=== PATIENT | female | born 1960 | race African-American/Black ===

== ENCOUNTER 2020-05-04 02:30 | Emergency (ER) | payer OTHER ==
--- NOTE | 2020-05-04 03:58 | ER Document Report ---
HPI - HPI Time Seen by Provider: 05/04/20 03:57 Pain Level: Denies Context: Patient is a 59-year-old female who presents the emergency department with a chief complaint of loss of taste and smell that started 9 days ago. Patient states that she does not know if she has had any contact with anybody who has tested positive for COVID-19. Patient states, "I think I have COVID." She has a history of hypertension. - CONSTITUTIONAL Constitutional: DENIES: Fever, Chills - EENT EENT: DENIES: Sore Throat, Ear Pain, Eye problems Notes: See HPI. - NEURO Neurology: DENIES: Headache, Weakness, Vision blurred, Dizzinesss / Vertigo - CARDIOVASCULAR Cardiovascular: DENIES: Chest pain - RESPIRATORY Respiratory: DENIES: Trouble Breathing, Coughing - GASTROINTESTINAL Gastrointestinal: DENIES: Abdominal Pain, Black / Bloody Stools - URINARY Urinary: DENIES: Dysuria, Urgency, Frequency - REPRODUCTIVE Reproductive: DENIES: : - MUSCULOSKELETAL Musculoskeletal: DENIES: Extremity pain Past Medical History - Social History Smoking Status: Current Every Day Smoker Chew tobacco use (# tins/day): No Frequency of alcohol use: None Drug Abuse: None Family History: Reviewed & Not Pertinent Patient has homicidal ideation: No Vertical Provider Document - CONSTITUTIONAL Agree With Documented VS: Yes Exam Limitations: No Limitations General Appearance: No Apparent Distress - HEENT HEENT: Atraumatic, Normocephalic, PERRLA - NECK Neck: Normal Inspection - RESPIRATORY Respiratory: Breath Sounds Normal, No Respiratory Distress - CARDIOVASCULAR Cardiovascular: Regular Rate, Regular Rhythm Pulses: Normal: Radial - MUSCULOSKELETAL/EXTREMETIES Musculoskeletal/Extremeties: FROM - NEURO Level of Consciousness: Awake, Alert, Appropriate Motor/Sensory: No Motor Deficit, No Sensory Deficit - DERM Integumentary: Warm, Dry, No Rash Course - Re-evaluation Re-evalutation: 05/04/20 03:58 The patient was evaluated during the global COVID-19 pandemic and that diagnosis was suspected/considered upon their initial presentation. Their evaluation, treatment and testing was consistent with current guidelines for patients who present with complaints or symptoms that may be related to COVID-19. - Vital Signs Vital signs: Temp Pulse Resp BP Pulse Ox 98.0 F 75 16 122/98 H 100 05/04/20 02:44 05/04/20 02:41 05/04/20 02:41 05/04/20 02:41 05/04/20 02:41 Discharge - Discharge Clinical Impression: Loss of taste, Loss of smell Condition: Stable Disposition: HOME, SELF-CARE Instructions: COVID-19 Guidance for Persons Under Investigation Additional Instructions: You were seen today in the emergency department for loss of taste and smell. You are tested for COVID-19. Health department will call you with your results. They usually give your results within 3 to 5 days. If your results are positive, stay in quarantine for at least 2 weeks.
[2020-05-04 04:15] VITALS: BP 110/72
== END 2020-05-04 04:14 | disposition home or self-care (01) ==
LOC: ER 02:30
DX: U07.1 COVID-19 (principal); R43.8 Other disturbances of smell and taste; F17.200 Nicotine dependence, unspecified, uncomplicated; I10 Essential (primary) hypertension
CPT/HCPCS: 99283; 87635; C9803

== ENCOUNTER 2020-05-10 03:50 | Inpatient (IN) | payer OTHER ==
[2020-05-10] MEDS ORDERED: ONDANSETRON HCL INJ/PF 4 MG/2 ML SDV IV ONE (04:18)
--- NOTE | 2020-05-10 04:22 | ER Document Report ---
ED General - General Chief Complaint: Weakness Stated Complaint: WEAKNESS Time Seen by Provider: 05/10/20 04:06 Primary Care Provider: MANASA VARGAS FNP-C [NO LOCAL MD] - Follow up as needed Notes: Patient is a 59-year-old female that comes emergency department for chief complaint of weakness and cough. She states that she has been sick for almost 2 weeks, she was seen here 6 days ago for similar symptoms, she tested positive for COVID-19, she states that she threw up earlier today, had really bad aching feeling in her legs, felt very weak and intermittently short of breath, so she decided to come back in for evaluation. She denies chest pain, headache, sore throat, abdominal pain, fever. Past medical history of hypertension, hyperlipidemia, both medicated. She denies smoking, COPD, asthma, cardiac h istory. - Related Data Allergies/Adverse Reactions: No Known Allergies Allergy (Unverified 05/04/20 04:03) Past Medical History - General Information source: Patient - Social History Smoking Status: Never Smoker Frequency of alcohol use: None Drug Abuse: None Lives with: Family Family History: Reviewed & Not Pertinent - Past Medical History Cardiac Medical History: Reports: Hx Hypercholesterolemia, Hx Hypertension - Immunizations Immunizations up to date: Yes Hx Diphtheria, Pertussis, Tetanus Vaccination: Yes Review of Systems - Review of Systems Constitutional: See HPI EENT: No symptoms reported Cardiovascular: No symptoms reported Respiratory: See HPI Gastrointestinal: See HPI Genitourinary: No symptoms reported Female Genitourinary: No symptoms reported Musculoskeletal: No symptoms reported Skin: No symptoms reported Hematologic/Lymphatic: No symptoms reported Neurological/Psychological: No symptoms reported Physical Exam - Vital signs Vitals: Temp Pulse Resp BP Pulse Ox 98.3 F 75 20 113/68 100 05/10/20 04:07 05/10/20 04:07 05/10/20 04:07 05/10/20 04:07 05/10/20 04:07 - Notes Notes: GENERAL: Patient is slightly lethargic and ill-appearing in appearance but she is a still awake, oriented, and appropriate HEAD: Normocephalic, atraumatic. EYES: Pupils equal, round, and reactive to light. Extraocular movements intact. ENT: Oral mucosa moist, tongue midline. Oropharynx unremarkable. Airway patent. LUNGS: Clear to auscultation bilaterally, no wheezes, rales, or rhonchi. No respiratory distress. Non-tender chest wall. HEART: Regular rate and rhythm. No murmur ABDOMEN: Soft, non-tender. Non-distended. EXTREMITIES: Moves all 4 extremities spontaneously. No edema, normal radial and dorsalis pedis pulses bilaterally. No cyanosis. BACK: no cervical, thoracic, lumbar midline tenderness. No saddle anesthesia, normal distal neurovascular exam. Moves all extremities in full range of motion. NEUROLOGICAL: Alert and oriented x3. Normal speech. Cranial nerves II through X II grossly intact. Strength 5/5 in all extremities. PSYCH: Flat affect SKIN: Warm, dry, normal turgor. No rashes or lesions noted. Course - Re-evaluation Re-evalutation: Patient is slightly ill-appearing and lethargic but she is still oriented, cooperative, and her physical exam is otherwise unremarkable. Lungs clear, soft abdomen, vital signs unremarkable. Chest x-ray unremarkable. CBC unremarkable. Chemistry shows marked hyponatremia at 106.6, slightly elevated LFTs, nonspecific otherwise. Troponin is not elevated. EKG nonspecific. I do not have any comparison labs, patient is not familiar with having hyponatremia in the past, I suspect her hydrochlorothiazide could be a component of this. I discussed with patient details, recommended admission for treatment of hyponatremia, patient states understanding and agreement. 05/10/20 08:[address] Ayoub, patient accepted by him, full admission. - Vital Signs Vital signs: Temp Pulse Resp BP Pulse Ox 98.3 F 75 20 113/68 100 05/10/20 04:07 05/10/20 04:07 05/10/20 04:07 05/10/20 04:07 05/10/20 04:07 - Laboratory Result Diagrams: 05/10/20 05:19 05/10/20 05:19 Laboratory results interpreted by me: 05/10/20 05/10/20 05/10/20 05:19 05:19 05:19 RBC 3.52 L Hgb 10.5 L Hct 28.9 L MCHC 36.3 H Sodium 106.6 L* Chloride 72 L Est GFR (MDRD) Non-Af 49 L AST 95 H ALT 40 H Urine Ketones TRACE H - EKG Interpretation by Me Additional EKG results interpreted by me: EKG shows sinus rhythm at a rate of 68, normal axis, borderline right bundle branch block. No T wave inversions or ST segment changes in consecutive leads. QTc 443. Discharge - Discharge Clinical Impression: Hyponatremia, Weakness, Body aches, COVID-19 Condition: Stable Disposition: ADMITTED INPATIENT Admitting Provider: [facility] (Hospitalist) Unit Admitted: IMCU Referrals: MANASA VARGAS FNP-C [NO LOCAL MD] - Follow up as needed
[2020-05-10 05:42] LABS: ABSOLUTE LYMPHOCYTES (AUTO) 2.6 10^3/uL (0.5-4.7); ABSOLUTE MONOCYTES (AUTO) 0.9 10^3/uL (0.1-1.4); BASOPHILS % (AUTO) 0.5 % (0-2); EOSINOPHILS % (AUTO) 0.2 % (0-6); HEMATOCRIT 28.9 % (36.0-47.0); HEMOGLOBIN 10.5 g/dL (12.0-15.5); MEAN CORPUSCULAR HEMOGLOBIN 29.8 pg (27.0-33.4); MEAN CORPUSCULAR HGB CONC 36.3 g/dL (32.0-36.0); MEAN CORPUSCULAR VOLUME 82 fl (80-97); PLATELET COUNT 335 10^3/uL (150-450); RED BLOOD COUNT 3.52 10^6/uL (3.72-5.28); RED CELL DISTRIBUTION WIDTH 12.4 % (11.5-14.0); SEGMENTED NEUTROPHILS % (AUTO) 63.3 % (42-78); TOTAL CELLS COUNTED % (AUTO) 100 %; WHITE BLOOD COUNT 9.5 10^3/uL (4.0-10.5)
[2020-05-10 05:50] LABS: APPEARANCE,URINE CLEAR; BILIRUBIN,URINE NEGATIVE (NEGATIVE); COLOR,URINE COLORLESS; GLUCOSE, URINE NEGATIVE (NEGATIVE); KETONES,URINE TRACE mg/dL (NEGATIVE); LEUKOCYTE ESTERASE,URINE NEGATIVE (NEGATIVE); NITRITE,URINE NEGATIVE (NEGATIVE); PROTEIN,URINE NEGATIVE (NEGATIVE); URINE SPECIFIC GRAVITY 1.002; UROBILINOGEN,URINE NEGATIVE mg/dL (<2.0)
[2020-05-10 06:08] LABS: ALKALINE PHOSPHATASE 75 U/L (38-126); ANION GAP 10 (5-19); ASPARTATE AMINO TRANSFERASE 95 U/L (14-36); BILIRUBIN,DIRECT 0.2 mg/dL (0.0-0.4); BILIRUBIN,TOTAL 1.1 mg/dL (0.2-1.3); BLOOD UREA NITROGEN 12 mg/dL (7-20); CALCIUM 9.3 mg/dL (8.4-10.2); CARBON DIOXIDE 25 mmol/L (22-30); CHLORIDE 72 mmol/L (98-107); GLUCOSE 99 mg/dL (75-110); POTASSIUM 4.2 mmol/L (3.6-5.0); TOTAL PROTEIN 6.5 g/dL (6.3-8.2)
--- NOTE | 2020-05-10 06:13 | RADIOLOGY REPORT (SQ) ---
EXAM: XR Chest, 1 View EXAM DATE/TIME: 05/10/2020 04:51 CLINICAL HISTORY: The patient is 59 years old and is Female; weakness, cough TECHNIQUE: Frontal view of the chest. COMPARISON: No relevant prior studies available. FINDINGS: LUNGS: Unremarkable. No consolidation. PLEURAL SPACE: Unremarkable. No pneumothorax. HEART: No significant enlargement of the cardiac silhouette. MEDIASTINUM: Unremarkable. BONES/JOINTS: No acute osseous findings. IMPRESSION: No acute findings visualized in the chest.
[2020-05-10] MEDS ORDERED: NORMAL SALINE 1000 ML 1,000 ML IV ONE (06:40)
[2020-05-10] MEDS ORDERED: PROMETHAZINE HCL 6.25 MG/5 ML SYRUP 60 ML PO PRN (08:25)
[2020-05-10] MEDS ORDERED: METOPROLOL TARTRATE PF/INJ 5 MG/5 ML SDV IV PRN (08:25)
[2020-05-10] MEDS ORDERED: ONDANSETRON HCL INJ/PF 4 MG/2 ML SDV IV PRN (08:25)
[2020-05-10] MEDS ORDERED: HYDRALAZINE HCL INJ/PF 20 MG/1 ML SDV IV PRN (08:25)
[2020-05-10] MEDS ORDERED: IPRATROPIUM/ALBUTEROL 0.5-2.5 MG/3 ML AMPUL NEB PRN (08:28)
[2020-05-10] MEDS ORDERED: NORMAL SALINE 1000 ML 1,000 ML IV PRN ×2 (08:32→14:59)
[2020-05-10] MEDS ORDERED: AZITHROMYCIN 250 MG TABLET PO ONE (09:00)
[2020-05-10] MEDS: ASCORBIC ACID 500 MG TABLET PO SCH ×2 (10:14→17:56)
[2020-05-10] MEDS: ASPIRIN 81 MG TABLET, ENT COATED PO SCH (10:14)
[2020-05-10] MEDS: CHOLECALCIFEROL (D3) 1,000 UNIT (25 MCG) TABLET PO SCH (10:15)
[2020-05-10] MEDS: ENOXAPARIN SODIUM INJ 60 MG/0.6 ML DISP.SYRIN SUBCUT SCH ×2 (10:15→21:13)
[2020-05-10] MEDS: DEXAMETHASONE SOD PHOS INJ 10 MG/1 ML VIAL IV SCH (10:16)
[2020-05-10] MEDS: ZINC SULFATE 220 MG CAPSULE PO SCH (10:54)
[2020-05-10 11:11] LABS: URINE CREATININE 20.8 mg/dL (15-278)
[2020-05-10 14:42] LABS: BLOOD UREA NITROGEN 11 mg/dL (7-20); CALCIUM 9.7 mg/dL (8.4-10.2); CARBON DIOXIDE 23 mmol/L (22-30); CHLORIDE 81 mmol/L (98-107); GLUCOSE 104 mg/dL (75-110); POTASSIUM 4.2 mmol/L (3.6-5.0)
[2020-05-10 14:45] LABS: ANION GAP 12 (5-19)
--- NOTE | 2020-05-10 15:37 | PDOC H&P ---
History of Present Illness Admission Date/PCP: 05/10/20 10:12 LORETTA HERNANDEZ MD History of Present Illness: MARCO ANTONIO ALEMAN is a 59 year old female with significant past medical history except for hypertension hyperlipidemia presented to ED on 05/04/2020 complaining of loss of taste for 9 days, could not tell if she was exposed COVID-19, patient was tested for COVID-19 and discharged home, today patient is presenting to ED complaining of persistent weakness and nonproductive cough, nausea vomiting, and generalized body aches and shortness of breath, mildly elevated aminotransfera ses, and was also noted to have positive cough with test from 05/04/2020. Except for one episode of vomiting patient denies having any excessive vomiting or diarrhea, she does not take any herbal medication, her only medication is hydrochlorothiazide which she has been taking for long time. Patient denies any fever, chills, chest pain, abdominal pain, constipation or any urinary symptoms. Hospitalist consulted for admission. Past Medical History Cardiac Medical History: Reports: Hyperlipidema, Hypertension Social History Lives with: Family Smoking Status: Never Smoker Family History Family History: Reviewed & Not Pertinent Parental Family History Reviewed: Yes Children Family History Reviewed: Yes Sibling(s) Family History Reviewed.: Yes Medication/Allergy Home Medications: Hydrochlorothiazide [Hydrodiuril 25 mg Tablet] 25 mg PO QAM 05/10/20 Lisinopril [Zestril] 30 mg PO QAM 05/10/20 Rosuvastatin Calcium 5 mg PO QPM 05/10/20 Allergies/Adverse Reactions: No Known Allergies Allergy (Unverified 05/04/20 04:03) Review of Systems Review of Systems: as per hpi Physical Exam Vital Signs: Temp Pulse Resp BP Pulse Ox 98.7 F 75 15 114/68 100 05/10/20 13:52 05/10/20 04:07 05/10/20 12:30 05/10/20 12:30 05/10/20 12:30 Intake & Output 05/09/20 05/10/20 05/11/20 06:59 06:59 06:59 Intake Total 1000 Output Total 400 Balance 600 Weight 73.482 kg General appearance: PRESENT: no acute distress, well-developed, well-nourished Head exam: PRESENT: atraumatic, normocephalic Respiratory exam: PRESENT: clear to auscultation nicholas. ABSENT: rales, rhonchi, wheezes Cardiovascular exam: PRESENT: RRR. ABSENT: diastolic murmur, rubs, systolic murmur GI/Abdominal exam: PRESENT: normal bowel sounds, soft. ABSENT: distended, guarding, mass, organolmegaly, rebound, tenderness Neurological exam: PRESENT: alert, awake, oriented to person, oriented to place, oriented to time, oriented to situation, CN II-XII grossly intact. ABSENT: motor sensory deficit Results Laboratory Results: 05/10/20 05:19 05/10/20 13:59 05/10/20 05/10/20 05/10/20 05:19 05:19 05:19 WBC 9.5 RBC 3.52 L Hgb 10.5 L Hct 28.9 L MCV 82 MCH 29.8 MCHC 36.3 H RDW 12.4 Plt Count 335 Seg Neutrophils % 63.3 Sodium 106.6 L* Potassium 4.2 Chloride 72 L Carbon Dioxide 25 Anion Gap 10 BUN 12 Creatinine 1.12 Est GFR ( Amer) > 60 Glucose 99 Serum Osmolality Calcium 9.3 Total Bilirubin 1.1 AST 95 H Alkaline Phosphatase 75 Total Protein 6.5 Albumin 4.0 Urine Color COLORLESS Urine Appearance CLEAR Urine pH 7.0 Ur Specific [place] 1.002 Urine Protein NEGATIVE Urine Glucose (UA) NEGATIVE Urine Ketones TRACE H Urine Blood NEGATIVE Urine Nitrite NEGATIVE Ur Leukocyte Esterase NEGATIVE Urine WBC (Auto) 1 Urine Osmolality 05/10/20 05/10/20 05/10/20 05:19 08:30 08:30 WBC RBC Hgb Hct MCV MCH MCHC RDW Plt Count Seg Neutrophils % Sodium 111.2 L* Potassium Chloride Carbon Dioxide Anion Gap BUN Creatinine Est GFR ( Amer) Glucose Serum Osmolality 228 L Calcium Total Bilirubin AST Alkaline Phosphatase Total Protein Albumin Urine Color Urine Appearance Urine pH Ur Specific [place] Urine Protein Urine Glucose (UA) Urine Ketones Urine Blood Urine Nitrite Ur Leukocyte Esterase Urine WBC (Auto) Urine Osmolality 96 L 05/10/20 13:59 WBC RBC Hgb Hct MCV MCH MCHC RDW Plt Count Seg Neutrophils % Sodium 115.6 L* Potassium 4.2 Chloride 81 L Carbon Dioxide 23 Anion Gap 12 BUN 11 Creatinine 0.97 Est GFR ( Amer) > 60 Glucose 104 Serum Osmolality Calcium 9.7 Total Bilirubin AST Alkaline Phosphatase Total Protein Albumin Urine Color Urine Appearance Urine pH Ur Specific [place] Urine Protein Urine Glucose (UA) Urine Ketones Urine Blood Urine Nitrite Ur Leukocyte Esterase Urine WBC (Auto) Urine Osmolality 05/10/20 05:19 Troponin I < 0.012 Impressions: Chest X-Ray 05/10/20 04:18 IMPRESSION: No acute findings visualized in the chest. Assessment and Plan - Diagnosis (1) Hyponatremia Is this a current diagnosis for this admission?: Yes Plan: Euvolemic hypoosmolar hyponatremia. Unclear etiology. Patient is on hydrochlorothiazide. Denies psychogenic polydipsia, denies taking any herbal medications. Initial labs showed a sodium of 106 in ED, she received 1 L of NS repeat sodium level was 111, not sure if this was lab error or patient actually corrected herself. Admit to IMCU, serum osmolarity, urine sodium, urine creatinine, NS IV fluids, every 4 BMP, monitor for seizure, fall, strict in and out. (2) Hypertension Qualifiers: Hypertension type: essential hypertension Qualified Code(s): I10 - Essential (primary) hypertension Is this a current diagnosis for this admission?: Yes Plan: Normotensive. Euvolemic. Home medications are lisinopril and hydrochlorothiazide. Resume lisinopril. Hold hydrochlorothiazide. PRN IV hydralazine and metoprolol. (3) COVID-19 Is this a current diagnosis for this admission?: Yes Plan: As per sample taken on 05/04/2020 patient is COVID positive. Complaining of generalized weakness and fatigue, still having loss of smell. Denies any fever, cough, chest pain, abdominal pain, nausea, diarrhea. SPO2 WNL. Afebrile. WBC WNL. Admit to IMCU, empiric IV antibiotics, anticoagulants, zinc sulfate, vitamin C, vitamin D. - Time Time Spent with patient: 35 or more minutes Medications reviewed and adjusted accordingly: Yes Anticipated Discharge Disposition: Home, Self Care Anticipated Discharge Timeframe: within 72 hours
[2020-05-10 20:26] LABS: ANION GAP 14 (5-19); BLOOD UREA NITROGEN 13 mg/dL (7-20); CALCIUM 9.6 mg/dL (8.4-10.2); CARBON DIOXIDE 24 mmol/L (22-30); CHLORIDE 84 mmol/L (98-107); GLUCOSE 110 mg/dL (75-110); POTASSIUM 3.9 mmol/L (3.6-5.0)
--- NOTE | 2020-05-11 00:45 | EKG REPORT ---
SEVERITY:- ABNORMAL ECG - SINUS RHYTHM PROBABLE LEFT ATRIAL ABNORMALITY INCOMPLETE RIGHT BUNDLE BRANCH BLOCK : Confirmed by: Catarina Puente MD 11-May-2020 00:45:28
[2020-05-11 02:27] LABS: ANION GAP 11 (5-19); BLOOD UREA NITROGEN 17 mg/dL (7-20); CALCIUM 9.4 mg/dL (8.4-10.2); CARBON DIOXIDE 23 mmol/L (22-30); CHLORIDE 88 mmol/L (98-107); GLUCOSE 118 mg/dL (75-110); POTASSIUM 3.8 mmol/L (3.6-5.0)
[2020-05-11 07:54] LABS: ABSOLUTE BASOPHILS # (AUTO) 0.2 10^3/uL (0.0-0.2); ABSOLUTE LYMPHOCYTES (AUTO) 1.9 10^3/uL (0.5-4.7); ABSOLUTE NEUT (AUTO) 8.3 10^3/uL (1.7-8.2); BASOPHILS % (AUTO) 1.4 % (0-2); HEMATOCRIT 30.3 % (36.0-47.0); HEMOGLOBIN 10.8 g/dL (12.0-15.5); MEAN CORPUSCULAR HEMOGLOBIN 29.3 pg (27.0-33.4); MEAN CORPUSCULAR HGB CONC 35.6 g/dL (32.0-36.0); MEAN CORPUSCULAR VOLUME 82 fl (80-97); MONOCYTES % (AUTO) 8.6 % (3-13); PLATELET COUNT 341 10^3/uL (150-450); RED BLOOD COUNT 3.68 10^6/uL (3.72-5.28); RED CELL DISTRIBUTION WIDTH 12.6 % (11.5-14.0); TOTAL CELLS COUNTED % (AUTO) 100 %; WHITE BLOOD COUNT 11.3 10^3/uL (4.0-10.5)
[2020-05-11] MEDS ORDERED: AZITHROMYCIN 250 MG TABLET PO SCH (08:00)
[2020-05-11] MEDS ORDERED: INFLUENZA QUAD (6MOS+) 2020-21 VAC 0.5 ML SYR IM ONE (08:00)
[2020-05-11 08:14] LABS: FIBRINOGEN 385 mg/dL (209-497); INTERNATIONAL RATION (INR) 1.04; PROTHROMBIN TIME 13.8 SEC (11.4-15.4)
[2020-05-11 08:17] LABS: D-DIMER 0.61 ug/mL (0.00-0.50)
[2020-05-11 08:33] LABS: ALBUMIN 4.1 g/dL (3.5-5.0); ALKALINE PHOSPHATASE 84 U/L (38-126); ANION GAP 12 (5-19); ASPARTATE AMINO TRANSFERASE 63 U/L (14-36); BILIRUBIN,DIRECT 0.2 mg/dL (0.0-0.4); BILIRUBIN,TOTAL 0.5 mg/dL (0.2-1.3); BLOOD UREA NITROGEN 14 mg/dL (7-20); CALCIUM 9.6 mg/dL (8.4-10.2); CARBON DIOXIDE 23 mmol/L (22-30); CHLORIDE 90 mmol/L (98-107); GLUCOSE 93 mg/dL (75-110); POTASSIUM 3.9 mmol/L (3.6-5.0); TOTAL PROTEIN 6.8 g/dL (6.3-8.2)
[2020-05-11] MEDS: ASPIRIN 81 MG TABLET, ENT COATED PO SCH (09:00)
[2020-05-11] MEDS: ZINC SULFATE 220 MG CAPSULE PO SCH (09:00)
[2020-05-11] MEDS: CHOLECALCIFEROL (D3) 1,000 UNIT (25 MCG) TABLET PO SCH (09:00)
[2020-05-11] MEDS: ENOXAPARIN SODIUM INJ 60 MG/0.6 ML DISP.SYRIN SUBCUT SCH (09:00)
[2020-05-11] MEDS: ASCORBIC ACID 500 MG TABLET PO SCH ×2 (09:00→17:00)
[2020-05-11] MEDS: DEXAMETHASONE SOD PHOS INJ 10 MG/1 ML VIAL IV SCH (09:01)
--- NOTE | 2020-05-11 13:33 | PDOC PROGRESS REPORT ---
Subjective Progress Note for:: 05/11/20 Subjective:: MARCO ANTONIO ALEMAN is a 59 year old female with significant past medical history except for hypertension hyperlipidemia presented to ED on 05/04/2020 complaining of loss of taste for 9 days, could not tell if she was exposed COVID-19, patient was tested for COVID-19 and discharged home, today patient is presenting to ED complaining of persistent weakness and nonproductive cough, nausea vomiting, and generalized body aches and shortness of breath, mildly elevated aminot ransferases, and was also noted to have positive cough with test from 05/04/2020. Except for one episode of vomiting patient denies having any excessive vomiting or diarrhea, she does not take any herbal medication, her only medication is hydrochlorothiazide which she has been taking for long time. Patient denies any fever, chills, chest pain, abdominal pain, constipation or any urinary symptoms. Hospitalist consulted for admission. 05/11/2020. No acute events overnight. Patient comfortably resting in bed in no apparent distress, alert and oriented x4, in no apparent distress, cooperative with physical examination, denies any fever, chills, nausea, vomiting, diarrhea, constipation or urinary symptoms. Patient states that since being diagnosed with COVID-19 she has been treated for multiple. Reason For Visit: HYPONATREMIA,WEAKNESS,BODY ACHES,COVID 19 Physical Exam Vital Signs: Temp Pulse Resp BP Pulse Ox 98.0 F 59 L 16 101/62 100 05/11/20 11:44 05/11/20 11:44 05/11/20 11:44 05/11/20 11:44 05/11/20 11:44 Intake & Output 05/10/20 05/11/20 05/12/20 06:59 06:59 06:59 Intake Total 1327 480 Output Total 550 Balance 777 480 Weight 70.9 kg General appearance: PRESENT: no acute distress, well-developed, well-nourished Head exam: PRESENT: atraumatic, normocephalic Respiratory exam: PRESENT: clear to auscultation nicholas. ABSENT: rales, rhonchi, wheezes Cardiovascular exam: PRESENT: RRR. ABSENT: diastolic murmur, rubs, systolic murmur GI/Abdominal exam: PRESENT: normal bowel sounds, soft. ABSENT: distended, guarding, mass, organolmegaly, rebound, tenderness Neurological exam: PRESENT: alert, awake, oriented to person, oriented to place, oriented to time, oriented to situation, CN II-XII grossly intact. ABSENT: motor sensory deficit Results Laboratory Results: 05/11/20 07:00 05/11/20 07:00 05/10/20 05/10/20 05/11/20 13:59 19:32 01:50 WBC RBC Hgb Hct MCV MCH MCHC RDW Plt Count Seg Neutrophils % Sodium 115.6 L* 122.1 L 122.0 L Potassium 4.2 3.9 3.8 Chloride 81 L 84 L 88 L Carbon Dioxide 23 24 23 Anion Gap 12 14 11 BUN 11 13 17 Creatinine 0.97 0.92 0.82 Est GFR ( Amer) > 60 > 60 > 60 Glucose 104 110 118 H Calcium 9.7 9.6 9.4 Ferritin Total Bilirubin AST Alkaline Phosphatase C-Reactive Protein Total Protein Albumin 05/11/20 05/11/20 07:00 07:00 WBC 11.3 H RBC 3.68 L Hgb 10.8 L Hct 30.3 L MCV 82 MCH 29.3 MCHC 35.6 RDW 12.6 Plt Count 341 Seg Neutrophils % 73.0 Sodium 125.0 L Potassium 3.9 Chloride 90 L Carbon Dioxide 23 Anion Gap 12 BUN 14 Creatinine 0.93 Est GFR ( Amer) > 60 Glucose 93 Calcium 9.6 Ferritin 273.00 H Total Bilirubin 0.5 AST 63 H Alkaline Phosphatase 84 C-Reactive Protein 14.0 H Total Protein 6.8 Albumin 4.1 05/10/20 05:19 Troponin I < 0.012 Impressions: Chest X-Ray 05/10/20 04:18 IMPRESSION: No acute findings visualized in the chest. Assessment and Plan - Diagnosis (1) Hyponatremia Is this a current diagnosis for this admission?: Yes Plan: Euvolemic hypoosmolar hyponatremia. Likely due to hydrochlorothiazide and excessive free water intake. Patient is stating that she has been drinking excessive amount of water since being diagnosed with COVID-19. Denies taking any herbal medications. Initial labs showed a sodium of 106 in ED, she received 1 L of NS repeat sodium level was 111, not sure if this was lab error or patient actually corrected hers elf. Initially was a started on normal saline but upon noticing that the patient was correcting her sodium too fast her IV fluids were stopped yesterday. Patient continues to correct her sodium by herself. Last sodium is 125. Patient is alert and oriented x4 in no apparent distress, seizure activity is denies any focal neurological symptoms. Continue monitoring vitals and electrolytes, replace as needed, BMP every 6 hours, restriction for now. Monitor for fall and seizure. Possible discharge home tomorrow. (2) Hypertension Qualifiers: Hypertension type: essential hypertension Qualified Code(s): I10 - Essential (primary) hypertension Is this a current diagnosis for this admission?: Yes Plan: Normotensive. Euvolemic. Home medications are lisinopril and hydrochlorothiazide. Resume lisinopril. Hold hydrochlorothiazide. PRN IV hydralazine and metoprolol. (3) COVID-19 Is this a current diagnosis for this admission?: Yes Plan: As per sample taken on 05/04/2020 patient is COVID positive. Asymptomatic. Denies any fever, cough, chest pain, abdominal pain, nausea, diarrhea. SPO2 WNL on RA. Afebrile. WBC WNL. Will DC empiric IV antibiotics and anticoagulants as patient is not symptomatic. Continue zinc sulfate, vitamin C, vitamin D and supportive measures. - Time Time Spent with patient: 35 or more minutes Medications reviewed and adjusted accordingly: Yes Anticipated Discharge Disposition: Home, Self Care Anticipated Discharge Timeframe: within 24 hours
[2020-05-11 18:39] LABS: ALBUMIN 4.5 g/dL (3.5-5.0); ALKALINE PHOSPHATASE 89 U/L (38-126); ANION GAP 13 (5-19); ASPARTATE AMINO TRANSFERASE 59 U/L (14-36); BILIRUBIN,DIRECT 0.2 mg/dL (0.0-0.4); BILIRUBIN,TOTAL 0.5 mg/dL (0.2-1.3); BLOOD UREA NITROGEN 15 mg/dL (7-20); CALCIUM 9.7 mg/dL (8.4-10.2); CARBON DIOXIDE 24 mmol/L (22-30); CHLORIDE 91 mmol/L (98-107); GLUCOSE 139 mg/dL (75-110); POTASSIUM 3.7 mmol/L (3.6-5.0); TOTAL PROTEIN 7.3 g/dL (6.3-8.2)
[2020-05-11] MEDS: HEPARIN SOD (PORCINE) 5,000 UNIT/ML 1 ML VIAL SUBCUT SCH (21:37)
[2020-05-12 00:55] LABS: ALBUMIN 3.9 g/dL (3.5-5.0); ALKALINE PHOSPHATASE 84 U/L (38-126); ANION GAP 9 (5-19); ASPARTATE AMINO TRANSFERASE 50 U/L (14-36); BILIRUBIN,DIRECT 0.2 mg/dL (0.0-0.4); BILIRUBIN,TOTAL 0.5 mg/dL (0.2-1.3); BLOOD UREA NITROGEN 15 mg/dL (7-20); CALCIUM 9.5 mg/dL (8.4-10.2); CARBON DIOXIDE 25 mmol/L (22-30); CHLORIDE 93 mmol/L (98-107); GLUCOSE 134 mg/dL (75-110); POTASSIUM 3.6 mmol/L (3.6-5.0); TOTAL PROTEIN 6.4 g/dL (6.3-8.2)
[2020-05-12] MEDS: HEPARIN SOD (PORCINE) 5,000 UNIT/ML 1 ML VIAL SUBCUT SCH ×2 (05:22→14:04)
[2020-05-12] MEDS: ASCORBIC ACID 500 MG TABLET PO SCH ×2 (09:01→17:04)
[2020-05-12] MEDS: ASPIRIN 81 MG TABLET, ENT COATED PO SCH (09:01)
[2020-05-12] MEDS: ZINC SULFATE 220 MG CAPSULE PO SCH (09:01)
[2020-05-12] MEDS: CHOLECALCIFEROL (D3) 1,000 UNIT (25 MCG) TABLET PO SCH (09:01)
[2020-05-12 12:15] LABS: ALBUMIN 4.2 g/dL (3.5-5.0); ALKALINE PHOSPHATASE 71 U/L (38-126); ANION GAP 12 (5-19); ASPARTATE AMINO TRANSFERASE 49 U/L (14-36); BILIRUBIN,DIRECT 0.3 mg/dL (0.0-0.4); BILIRUBIN,TOTAL 0.6 mg/dL (0.2-1.3); BLOOD UREA NITROGEN 13 mg/dL (7-20); CALCIUM 9.9 mg/dL (8.4-10.2); CARBON DIOXIDE 24 mmol/L (22-30); CHLORIDE 94 mmol/L (98-107); GLUCOSE 83 mg/dL (75-110); POTASSIUM 3.6 mmol/L (3.6-5.0); TOTAL PROTEIN 6.8 g/dL (6.3-8.2)
[2020-05-12] MEDS ORDERED: NORMAL SALINE 1000 ML 1,000 ML IV PRN (12:34)
[2020-05-12 17:46] LABS: ANION GAP 9 (5-19); BLOOD UREA NITROGEN 13 mg/dL (7-20); CALCIUM 9.6 mg/dL (8.4-10.2); CARBON DIOXIDE 26 mmol/L (22-30); CHLORIDE 96 mmol/L (98-107); GLUCOSE 103 mg/dL (75-110); POTASSIUM 3.9 mmol/L (3.6-5.0)
[2020-05-12 18:50] VITALS: BP 113/68
--- NOTE | 2020-05-22 08:09 | PDOC DISCHARGE SUMMARY ---
Impression - Admit/DC Date/PCP Admission Date/Primary Care Provider: 05/10/20 10:12 LROETTA HERNANDEZ MD Discharge Date: 05/12/20 - Discharge Diagnosis (1) Hyponatremia Is this a current diagnosis for this admission?: Yes (2) Hypertension Is this a current diagnosis for this admission?: Yes (3) COVID-19 Is this a current diagnosis for this admission?: Yes - Additional Information Discharge Diet: As Tolerated Discharge Activity: Activity As Tolerated, Balance Activity w/Rest Referrals: MANASA VARGAS FNP-C [NO LOCAL MD] - Follow up as needed Home Medications: Lisinopril [Zestril] 30 mg PO QAM 05/10/20 Rosuvastatin Calcium 5 mg PO QPM 05/10/20 History of Present Illiness History of Present Illness: MARCO ANTONIO ALEMAN is a 59 year old female with significant past medical history except for hypertension hyperlipidemia presented to ED on 05/04/2020 complaining of loss of taste for 9 days, could not tell if she was exposed COVID-19, patient was tested for COVID-19 and discharged home, today patient is presenting to ED complaining of persistent weakness and nonproductive cough, nausea vomiting, and generalized body aches and shortness of breath, mildly elevated aminotransferases, and was also noted to have positive cough with test from 05/04/2020. Except for one episode of vomiting patient denies having any excessive vomiting or diarrhea, she does not take any herbal medication, her only medication is hydrochlorothiazide which she has been taking for long time. Patient denies any fever, chills, chest pain, abdominal pain, constipation or any urinary symptoms. Hospitalist consulted for admission. Hospital Course Hospital Course: (1) Hyponatremia Moderate improvement (Na 131) but not optimized, unfortunately pt very anxious to be dischared. Pt was advised to follow up with PCP as soon as possible for re-evaluation of her sodium level. Euvolemic hypoosmolar hyponatremia. Likely due to hydrochlorothiazide and excessive free water intake. Patient is stating that she has been drinking excessive amount of water since being diagnosed with COVID-19. Denies taking any herbal medications. Initial labs showed a sodium of 106 in ED, she received 1 L of NS repeat sodium level was 111, not sure if this was lab error or patient actually corrected herself. Initially was a started on normal saline but upon noticing that the patient was correcting her sodium too fast her IV fluids were stopped yesterday. Patient continues to correct her sodium by herself. Last sodium is 125. Patient is alert and oriented x4 in no apparent distress, seizure activity is denies any focal neurological symptoms. Continue monitoring vitals and electrolytes, replace as needed, BMP every 6 hours, restriction for now. Monitor for fall and seizure. (2) Hypertension Normotensive. Euvolemic. Home medications are lisinopril and hydrochlorothiazide. Resume lisinopril. Hold hydrochlorothiazide. PRN IV hydralazine and metoprolol. (3) COVID-19 As per sample taken on 05/04/2020 patient is COVID positive. Asymptomatic. Denies any fever, cough, chest pain, abdominal pain, nausea, diarrhea. SPO2 WNL on RA. Afebrile. WBC WNL. Will DC empiric IV antibiotics and anticoagulants as patient is not symptomatic. Continue zinc sulfate, vitamin C, vitamin D and supportive measures. Physical Exam Vital Signs: Temp Pulse Resp BP Pulse Ox 98.5 F 70 16 113/68 100 05/12/20 18:46 05/12/20 18:46 05/12/20 18:46 05/12/20 18:46 05/12/20 18:46 General appearance: PRESENT: no acute distress, well-developed, well-nourished Head exam: PRESENT: atraumatic, normocephalic Eye exam: PRESENT: conjunctiva pink, EOMI, PERRLA. ABSENT: scleral icterus Ear exam: PRESENT: normal external ear exam Neck exam: ABSENT: carotid bruit, JVD, lymphadenopathy, thyromegaly Respiratory exam: PRESENT: clear to auscultation nicholas. ABSENT: rales, rhonchi, wheezes Cardiovascular exam: PRESENT: RRR. ABSENT: diastolic murmur, rubs, systolic murmur Pulses: PRESENT: normal dorsalis pedis pul Vascular exam: PRESENT: normal capillary refill GI/Abdominal exam: PRESENT: normal bowel sounds, soft. ABSENT: distended, guarding, mass, organolmegaly, rebound, tenderness Rectal exam: PRESENT: deferred Extremities exam: PRESENT: full ROM. ABSENT: calf tenderness, clubbing, pedal edema Neurological exam: PRESENT: alert, awake, oriented to person, oriented to place, oriented to time, oriented to situation, CN II-XII grossly intact. ABSENT: motor sensory deficit Psychiatric exam: PRESENT: appropriate affect, normal mood. ABSENT: homicidal ideation, suicidal ideation Skin exam: PRESENT: dry, intact, warm. ABSENT: cyanosis, rash Results Laboratory Results: WBC 11.3 10^3/uL (4.0-10.5) H 05/11/20 07:00 RBC 3.68 10^6/uL (3.72-5.28) L 05/11/20 07:00 Hgb 10.8 g/dL (12.0-15.5) L 05/11/20 07:00 Hct 30.3 % (36.0-47.0) L 05/11/20 07:00 MCV 82 fl (80-97) 05/11/20 07:00 MCH 29.3 pg (27.0-33.4) 05/11/20 07:00 MCHC 35.6 g/dL (32.0-36.0) 05/11/20 07:00 RDW 12.6 % (11.5-14.0) 05/11/20 07:00 Plt Count 341 10^3/uL (150-450) 05/11/20 07:00 Lymph % (Auto) 17.0 % (13-45) 05/11/20 07:00 Summers % (Auto) 8.6 % (3-13) 05/11/20 07:00 Eos % (Auto) 0.0 % (0-6) 05/11/20 07:00 Baso % (Auto) 1.4 % (0-2) 05/11/20 07:00 Absolute Neuts (auto) 8.3 10^3/uL (1.7-8.2) H 05/11/20 07:00 Absolute Lymphs (auto) 1.9 10^3/uL (0.5-4.7) 05/11/20 07:00 Absolute Monos (auto) 1.0 10^3/uL (0.1-1.4) 05/11/20 07:00 Absolute Eos (auto) 0.0 10^3/uL (0.0-0.6) 05/11/20 07:00 Absolute Basos (auto) 0.2 10^3/uL (0.0-0.2) 05/11/20 07:00 Seg Neutrophils % 73.0 % (42-78) 05/11/20 07:00 PT 13.8 SEC (11.4-15.4) 05/11/20 07:00 INR 1.04 05/11/20 07:00 Fibrinogen 385 mg/dL (209-497) 05/11/20 07:00 D-Dimer 0.73 ug/mL (0.00-0.50) H 05/11/20 14:02 Sodium 131.1 mmol/L (137-145) L 05/12/20 17:10 Potassium 3.9 mmol/L (3.6-5.0) 05/12/20 17:10 Chloride 96 mmol/L (98-107) L 05/12/20 17:10 Carbon Dioxide 26 mmol/L (22-30) 05/12/20 17:10 Anion Gap 9 (5-19) 05/12/20 17:10 BUN 13 mg/dL (7-20) 05/12/20 17:10 Creatinine 0.84 mg/dL (0.52-1.25) 05/12/20 17:10 Est GFR ( Amer) > 60 (>60) 05/12/20 17:10 Est GFR (Non-Af Amer) Cancelled 05/12/20 06:05 Est GFR (MDRD) Non-Af > 60 (>60) 05/12/20 17:10 Glucose 103 mg/dL (75-110) 05/12/20 17:10 Serum Osmolality 228 mOsm/kg (275-301) L 05/10/20 08:30 Calcium 9.6 mg/dL (8.4-10.2) 05/12/20 17:10 Ferritin 273.00 ng/mL (11.1-264.0) H 05/11/20 07:00 Total Bilirubin 0.6 mg/dL (0.2-1.3) 05/12/20 10:20 Direct Bilirubin 0.3 mg/dL (0.0-0.4) 05/12/20 10:20 Neonat Total Bilirubin Not Reportable 05/12/20 10:20 Neonat Direct Bilirubin Not Reportable 05/12/20 10:20 Neonat Indirect Bili Not Reportable 10/11/20 10:20 AST 49 U/L (14-36) H 05/12/20 10:20 ALT 33 U/L (<35) 05/12/20 10:20 Alkaline Phosphatase 71 U/L (38-126) 05/12/20 10:20 Lactate Dehydrogenase 247 U/L (120-246) H 05/10/20 08:30 Troponin I < 0.012 ng/mL 05/10/20 05:19 C-Reactive Protein 14.0 mg/L (<10.0) H 05/11/20 07:00 Total Protein 6.8 g/dL (6.3-8.2) 05/12/20 10:20 Albumin 4.2 g/dL (3.5-5.0) 05/12/20 10:20 EGFR Cancelled 05/12/20 06:05 Urine Color COLORLESS 05/10/20 05:19 Urine Appearance CLEAR 05/10/20 05:19 Urine pH 7.0 (5.0-9.0) 05/10/20 05:19 Ur Specific [place] 1.002 05/10/20 05:19 Urine Protein NEGATIVE mg/dL (NEGATIVE) 05/10/20 05:19 Urine Glucose (UA) NEGATIVE mg/dL (NEGATIVE) 05/10/20 05:19 Urine Ketones TRACE mg/dL (NEGATIVE) H 05/10/20 05:19 Urine Blood NEGATIVE (NEGATIVE) 05/10/20 05:19 Urine Nitrite NEGATIVE (NEGATIVE) 05/10/20 05:19 Urine Bilirubin NEGATIVE (NEGATIVE) 05/10/20 05:19 Urine Urobilinogen NEGATIVE mg/dL (<2.0) 05/10/20 05:19 Ur Leukocyte Esterase NEGATIVE (NEGATIVE) 05/10/20 05:19 Urine WBC (Auto) 1 /HPF 05/10/20 05:19 Urine Bacteria (Auto) TRACE /HPF 05/10/20 05:19 Squamous Epi Cells Auto <1 /HPF 05/10/20 05:19 Urine Mucus (Auto) RARE /LPF 05/10/20 05:19 Urine Osmolality 96 mOsm/kg (300-900) L 05/10/20 05:19 Urine Creatinine 20.8 mg/dL (15-278) 05/10/20 05:19 Urine Sodium 15 mmol/L (30-90) L 05/10/20 05:19 Urine Ascorbic Acid NEGATIVE (NEGATIVE) 05/10/20 05:19 05/10/20 05:19 Troponin I < 0.012 Impressions: Chest X-Ray 05/10/20 04:18 IMPRESSION: No acute findings visualized in the chest. Stroke Is this a Stroke Patient?: No Acute Heart Failure Is this a Heart Failure Patient?: No
== END 2020-05-12 19:18 | disposition home or self-care (01) | DRG 178 ==
LOC: ER 03:50 → EH 10:12 → 3W 18:24
PROVIDERS: ADMIT Internal Medicine; ATTEND Internal Medicine
DX: U07.1 COVID-19 (principal); E87.1 Hypo-osmolality and hyponatremia; T50.2X5A Adverse effect of carbonic-anhydrase inhibitors, benzothiadiazides and other diuretics, initial encounter; I10 Essential (primary) hypertension; E78.5 Hyperlipidemia, unspecified; R06.02 Shortness of breath; R53.83 Other fatigue; R05 Cough; R11.2 Nausea with vomiting, unspecified; R53.1 Weakness
CPT/HCPCS: 36415; 71045; 80053; 81001; 82570; 82728; 83615; 83930; 83935; 84295; 84300; 84484; 85025; 85379; 85384; 85610; 86140; 87070; 90471; 90686; 93005; 93010; 96374; 99285; G0008; J1100; J1644; J1650; J2405; J3490; J7030